=== PATIENT | female | born 1980 | race Caucasian/White ===

== ENCOUNTER 2017-04-17 00:04 | Inpatient (IN) | payer MEDICAID ==
[~2017-04-17] VITALS: Ht 147.3 cm; Wt 55.4 kg
[2017-04-17 00:30] VITALS: BP 120/69; PULSE 81; RESP 18
[2017-04-17 00:34] VITALS: Ht 147.3 cm; Wt 55.4 kg
[2017-04-17] MEDS ORDERED: LACTATED RINGER'S 1,000 ML IV SCH (00:36)
[2017-04-17] MEDS ORDERED: OXYCODONE/ASPIRIN (4.88/325) TAB PO PRN (01:00)
[2017-04-17] MEDS ORDERED: OXYTOCIN 30 UNITS/LR 500 ML IV PRN ×3 (01:00→06:30)
[2017-04-17] MEDS ORDERED: MISOPROSTOL 200 MCG TAB PR PRN ×2 (01:00→06:30)
[2017-04-17] MEDS ORDERED: BUTORPHANOL 2 MG INJ IV PRN ×2 (01:00)
[2017-04-17] MEDS ORDERED: IBUPROFEN 600 MG TAB PO PRN (01:00)
[2017-04-17] MEDS ORDERED: LIDOCAINE 1% (MPF) 30 ML INJ INJ PRN (01:00)
[2017-04-17] MEDS ORDERED: METHYLERGONOVINE 0.2 MG INJ IM PRN ×2 (01:00→06:30)
[2017-04-17] MEDS ORDERED: OXYTOCIN 30 UNITS/LR 500 ML IV SCH ×2 (01:00)
[2017-04-17] MEDS ORDERED: CARBOPROST 250 MCG INJ IM PRN ×2 (01:00→06:30)
[2017-04-17 01:27] LABS: BASOPHILS % 0.2 % (0.0-2.0); EOSINOPHILS % 0.3 % (0.0-7.0); HEMATOCRIT 33.4 % (37.0-47.0); HEMOGLOBIN 10.9 g/dl (12.0-16.0); LYMPHOCYTES # 1.1 10^3/ul (0.8-2.9); LYMPHOCYTES % 17.3 % (15.0-51.0); MEAN CORPUSCULAR HEMOGLOBIN 28.8 pg (29.0-33.0); MEAN CORPUSCULAR HGB CONC 32.6 g/dl (32.0-37.0); MEAN CORPUSCULAR VOLUME 88.4 fl (82.0-101.0); MEAN PLATELET VOLUME 11.5 fl (7.4-10.4); MONOCYTE # 0.5 10^3/ul (0.3-0.9); NEUTROPHIL # 4.8 10^3/ul (1.6-7.5); NEUTROPHILS % 74.6 % (39.0-77.0); PLATELET COUNT 260 10^3/UL (140-415); RED BLOOD COUNT 3.78 10^6/ul (4.20-5.40); RED CELL DISTRIBUTION WIDTH 14.5 % (11.5-14.5); WHITE BLOOD COUNT 6.5 10^3/ul (4.8-10.8)
[2017-04-17 01:48] LABS: INR 0.89; PROTIME 12.1 Sec (11.9-14.9); PT RATIO 0.9
[2017-04-17 01:49] LABS: PARTIAL THROMBOPLASTIN TIME 23.5 Sec (25.0-35.0)
--- NOTE | 2017-04-17 01:58 | TRIAGE ---
OB Triage Datetime Report Generated by CPN: 04/17/2017 01:58 Datetime: 04/17/2017 01:38 Labor Evaluation Frequency: 3-4 Monitor Mode: External Duration (sec)2399: 60-100 Quality: Strong Pattern: Normal: <= 5 Contractions in 10 Minutes Resting Tone Artas: Relaxed Heart Rate FHR Baseline Rate: 130 Monitor Mode: External US Variability: Moderate 6-25 bpm Accelerations: 15X15 Decelerations: Early Category: Category I Datetime: 04/17/2017 00:45 Labor Evaluation Frequency: 3-6 Monitor Mode: External Duration (sec)2399: 40-90 Quality: Strong Pattern: Normal: <= 5 Contractions in 10 Minutes Resting Tone Artas: Relaxed Heart Rate FHR Baseline Rate: 130 Monitor Mode: External US Variability: Moderate 6-25 bpm Accelerations: 15X15 Decelerations: Variable Category: Category II Datetime: 04/17/2017 00:20 Time of Arrival: 04/17/2017 01:00 EGA: 38.2 Arrived By: Wheelchair Arrived From: Home Datetime: 04/17/2017 00:16 Vaginal Exam Dilatation (cms): 3.5 Effacement (%): 80 Station: -3 Exam By: Fermin GUZMÁN Membrane Status: Bulging Vaginal Bleeding: Normal Show Cervix, Consistency: Soft Cervix, Position: Midposition Presentation 'A': Cephalic Datetime: 04/17/2017 00:15 Stage of : OB Triage Assessment Type: Triage Time of Arrival: 04/17/2017 00:01 Arrived By: Wheelchair Arrived From: Home Chief Complaint: CONTRACTIONS AND VAGINAL BLEEDING Movement: Present Contractions: Regular Contractions: 3-6 Rupture of Membranes: Denies Vaginal Bleeding: Normal Show Vaginal Discharge: Denies Recent Sexual Intercouse: Denies Abdominal Trauma: Not Applicable Patient Complaints: Contractions Time Provider Notified: 04/17/2017 01:15 Provider Notified: DR. SHEPARD Initial Plan: EFM, SVE, CALL OB Maternal Assessment Level of Consciousness: Fully Conscious DTR's/Clonus: DTRs 2+; No Clonus Headache: Denies Blurred Vision: No Respiratory Effort: Unlabored; Regular Rhythm; Equal Expansion Breath Sounds, Left: Clear and Equal Breath Sounds, Right: Clear and Equal Nausea/Vomiting: Denies RUQ Epigastric Pain: Denies Lower Extremities Edema: None Degree: None Upper Extremities Edema: None Degree: None Facial Edema: None Temperature Route: Oral Fall Risk Assessment History of Falling: (0) No Secondary Diagnosis: (0) No Ambulatory Aid: (0) Bedrest/Nurse Assist IV Therapy: (0) No Gait: (0) Normal/Bedrest/Immobile Mental Status: (0) Oriented to Own Ability Fall Score: 0 Fall Risk Score Definition: No Risk: No action required Pain Assessment Pain Scale: 8 Pain Presence: Intermittent Pain Type: Contraction Pain Location: Abdomen Datetime: 04/17/2017 00:13 Contraction Comments: APPLIED Comments: APPLIED
[2017-04-17] MEDS ORDERED: LANOLIN 7 GM TUBE TOP PRN (06:30)
[2017-04-17] MEDS ORDERED: HYDROCODONE/APAP (5/325) TAB PO PRN (06:30)
--- NOTE | 2017-04-17 06:30 | LDN ---
Date/Time of Note Date/Time of Note DATE: 04/17/17 TIME: 06:28 Delivery Summary of a viable baby girl weighing 3195 grams or 7# 1 oz, 19" long, and with Apgars of 9/9. Weeks of Gestation 38w 2d Placenta Delivered: Spontaneously Meconium: none Episiotomy: No Perineal laceration: 1 Laceration repair: First degree perineal laceration repaired with 3-0 chromic. Anesthesia type: None Estimated blood loss: 150 Sponge & Needle done & correct: Yes All needle counts correct: Yes Any foreign bodies felt in the: No (vagina) Problems: Infant Delivery Information Sex Sex: female Apgars 1 Minute: 9 5 Minute: 9 Suctioning Nose & mouth suctioned at denae: Yes Delee suction performed: No Umbilical Cord Umbilical cord with: 3 Vessels Cord presentations: no nuchal cord Cord Blood was obtained: Yes Mother & Baby Disposition Disposition Mom & Baby to Maternity; Good: Yes Baby to NICU: No SILVANO SHEPARD MD Apr 17, 2017 06:30
--- NOTE | 2017-04-17 06:33 | HP ---
Date/Time of Note Date/Time of Note DATE: 04/17/17 TIME: 06:30 OB - History Hx of Present Free Text/Dictation 37 y.o. with an IUP at 38w 2d came in active labor at midnight with an initial exam of 80%/3-4 cm/-2/intact. Estimated Due Date: Apr 29, 2017 : 4 Para: 3 Care: Good Care Ultrasounds: Normal mid trimester US Obstetrical Complications: None Medical Complications: None Past Family/Social History * Past Medical, Surgical, Family and Obstetric Histories reviewed with pt as prenatals not available. Blood Type: O+ Rubella: immune RPR/VDRL: Negative GBS Status: Negative HBsAG: Negative OB Admission Exam Vital Signs Vital Signs Vital Signs Date Time Temp Pulse Resp B/P Pulse Ox O2 Delivery O2 Flow Rate FiO2 04/17/17 00:30 98.0 81 18 120/69 Room Air Physical Exam HEENT: WNL Heart: Rhythm Normal Lungs: Clear Abdomen: WNL Extremities: Normal Reflexes: Normal Cervical Dilatation: 4cm Effacement: 75% Station: -2 Membranes: Intact Amniotic Fluid: Clear Heart Rate: 130's Accelerations: Accelerations Present Decelerations: No Decelerations Varibility: Moderate Contractions on Admission: 6-10 Minutes Apart Last 72 hours Lab Results CBC & BMP 04/17/17 01:00 OB Assessment/Plan Reason for admission: active labor Plan: Expectant Management SILVANO SHEPARD MD Apr 17, 2017 06:33
[2017-04-17] MEDS: OXYTOCIN 30 UNITS/LR 500 ML IV SCH ×2 (07:38→14:05)
[2017-04-17 08:00] VITALS: BP 94/53; PULSE 58; RESP 17
[2017-04-17 09:25] VITALS: BP 94/53; PULSE 58; RESP 18
[2017-04-17] MEDS: IBUPROFEN 600 MG TAB PO SCH ×3 (12:42→23:39)
[2017-04-17 12:51] VITALS: BP 90/52; PULSE 62; RESP 16
[2017-04-17 16:13] VITALS: BP 93/50; PULSE 63; RESP 18
[2017-04-17] MEDS: LACTATED RINGER'S 1,000 ML IV* SCH ×2 (18:31→22:26)
[2017-04-17 20:00] VITALS: BP 100/59; PULSE 70; RESP 20
[2017-04-18 02:38] VITALS: BP 101/54; PULSE 65; RESP 20
[2017-04-18] MEDS: IBUPROFEN 600 MG TAB PO SCH ×4 (05:15→23:42)
[2017-04-18] MEDS: LACTATED RINGER'S 1,000 ML IV* SCH (06:26)
[2017-04-18 08:00] VITALS: BP 103/52; PULSE 67; RESP 18
[2017-04-18 10:30] LABS: BASOPHILS % 0.3 % (0.0-2.0); EOSINOPHILS % 0.1 % (0.0-7.0); HEMATOCRIT 34.4 % (37.0-47.0); HEMOGLOBIN 11.1 g/dl (12.0-16.0); LYMPHOCYTES # 1.1 10^3/ul (0.8-2.9); LYMPHOCYTES % 12.3 % (15.0-51.0); MEAN CORPUSCULAR HEMOGLOBIN 28.9 pg (29.0-33.0); MEAN CORPUSCULAR HGB CONC 32.3 g/dl (32.0-37.0); MEAN CORPUSCULAR VOLUME 89.6 fl (82.0-101.0); MEAN PLATELET VOLUME 11.4 fl (7.4-10.4); MONOCYTE # 0.4 10^3/ul (0.3-0.9); MONOCYTES % 4.4 % (0.0-11.0); NEUTROPHIL # 7.5 10^3/ul (1.6-7.5); NEUTROPHILS % 82.4 % (39.0-77.0); PLATELET COUNT 216 10^3/UL (140-415); RED BLOOD COUNT 3.84 10^6/ul (4.20-5.40); RED CELL DISTRIBUTION WIDTH 14.5 % (11.5-14.5); WHITE BLOOD COUNT 9.2 10^3/ul (4.8-10.8)
[2017-04-18 16:09] VITALS: BP 101/56; PULSE 60; RESP 19
--- NOTE | 2017-04-18 18:45 | DS ---
Date/Time of Note Date/Time of Note Home next day DATE: 04/18/17 TIME: 18:44 Obstetrical Discharge Record Final Diagnosis Final Diagnosis: Term delivered Other Final Diagnosis Status post vaginal delivery Vaginal Delivery Obstetrical Delivery: Spontaneous, Laceration, Repaired Condition on Discharge Physical Assessment Last Vitals: See nurse's notes Voiding: Yes Bowel Movement: Yes Breast: Soft, non-tender, Filling Fundus: Firm Abdomen and Incision: Abdomen is soft bowel sounds present Fundus is firm at U Episiotomy: Perineum is healing Calf Tenderness: No Patient Condition: Good TRANG SIMPSON MD Apr 18, 2017 18:45
[2017-04-18] MEDS ORDERED: IBUP-1542 PO (18:46)
--- NOTE | 2017-04-18 18:46 | PD.PPDC ---
PILLOWCASE CUTTER Discharge Instruction Provider Information Physician Information 37-year-old female had vaginal delivery Diagnosis Final Diagnosis: Status post vaginal delivery Condition Patient Condition: Good Diet Diet: Resume Regular Diet Activity/Restrictions Activity: Normal Activity May Shower Restrictions: Nothing in the Vagina Return to Work or School: Jun 05, 2017 Follow-up Follow-up with Physician: 4, Week/Weeks (In clinic) Return to clinic for OB Instructions: Breast Tenderness Depression Comment: Pelvic rest for 6 weeks TRANG SIMPSON MD Apr 18, 2017 18:46
[2017-04-18 20:00] VITALS: BP 94/60; PULSE 70; RESP 20
[2017-04-19 04:00] VITALS: BP 100/66; PULSE 65; RESP 18
[2017-04-19] MEDS: IBUPROFEN 600 MG TAB PO SCH ×2 (05:21→12:24)
[2017-04-19 08:35] VITALS: BP 98/57; PULSE 54; RESP 20
[2017-04-19] MEDS ORDERED: DIPHTH/TET/ACEL PERTUSS (ADULT) 0.5 ML VIAL IM* ONE (09:00)
== END 2017-04-19 18:20 | disposition home or self-care (01) | DRG 775 ==
LOC: OBT 00:04 → L-D 00:06 → OBT 01:15 → L-D 01:17 → PP1 08:48
PROVIDERS: ADMIT Obstetrics & Gynecology; ATTEND Obstetrics & Gynecology
PROC: 10E0XZZ Delivery of Products of Conception, External Approach (ICD-10-PCS; principal; 2017-04-17)
PROC: 0HQ9XZZ Repair Perineum Skin, External Approach (ICD-10-PCS; 2017-04-17)
DX: O70.0 First degree perineal laceration during delivery (principal); Z37.0 Single live birth; Z3A.38 38 weeks gestation of pregnancy
CPT/HCPCS: 36415; 85025; 85610; 85730; 86592; 86900; 86901; 87340; 90715; G0463; J2590; J7120